=== PATIENT | female | born 1960 | race Caucasian/White ===

== ENCOUNTER 2023-03-06 08:21 | Emergency (ER) | payer OTHER, SELFPAY ==
[2023-03-06 08:23] VITALS: BP 180/107
[2023-03-06] MEDS: TYLENOL 1000 MG PO (09:53)
[2023-03-06] MEDS: MOTRIN 600 MG PO (09:55)
--- NOTE | 2023-03-06 10:10 | ED.GENMED ---
History of Present Illness
<Chucky Arango Jr., PA-C - Last Filed: 03/06/23 14:01>
General
Chief Complaint: Fall
Source: patient
Exam Limitations: none
Time Seen by Provider: 03/06/23 09:04
Nursing documentation reviewed up to this point in time: agreed with
Travel History
Have you had any contact with someone who has COVID-19?: No
Do you have any symptoms of coronavirus? Fever > 100 degrees, chills, cough, shortness of breath, sore throat, loss of taste or smell, muscle aches, or headache?: No
History of Present Illness
History of Present Illness:
62-year-old female presenting to the emergency department today after a slip and fall yesterday when walking in the work twisted her left ankle has been able to walk but has been limping. Denies numbness weakness denies any head trauma not on blood
thinners. Does have some mild pain to her knees bilaterally
Past History
<Chucky Arango Jr., PA-C - Last Filed: 03/06/23 14:01>
Past History
ED Past Medical History: None
ED Past Surgical History: Orthopedic
Social History
Tobacco: Non-smoker
Alcohol: Occasional
Drug: None
Living: with family
Employment: Employed
Review of Systems
<Chucky Arango Jr., PA-C - Last Filed: 03/06/23 14:01>
Review of Systems
Allergies reviewed?: Yes
All Other Systems: ROS reviewed and negative except as documented in HPI and ROS
Phy Exam
<Chucky Arango Jr., PA-C - Last Filed: 03/06/23 14:01>
Physical Exam
Physical Exam:
GENERAL: Alert , in no apparent distress
EYE: pupils equal and reactive
NECK: Supple, no significant adenopathy.
ENT: o/p clr, mmm.
CARDIAC: Regular rate and rhythm .
LUNGS: Clear breath sounds bilaterally, no acute respiratory distress, no wheezes/rales/rhonchi
ABDOMEN: Soft, without focal tenderness, no r/g, no cvat
NEUROLOGICAL: Alert and oriented, no focal neuro deficits
SKIN: Warm and dry, skin intact.
MUSCULOSKELETAL: Very mild swelling to the left ankle tenderness palpation mainly to the left lateral malleolus, well perfused.
PSYCH: Normal and appropriate interaction.
Course
<Chucky Arango Jr., EDYTA-Chucky - Last Filed: 03/06/23 14:01>
Orders/Labs/Results
Orders:
Orders
03/06/23 09:34
Acetaminophen [Tylenol] 1,000 mg PO NOW STA
Ibuprofen [Motrin] 600 mg PO NOW STA
Ankle, left 3 view CR [CR Ankle - Left Min 3 Views ] Urgent
Comment:
Reason For Exam: ankle pain after fall
CR Foot - Left Min 3 Views Urgent
Comment:
Reason For Exam: foot pain after fall
CR Knee - Left 4 Or More View* Urgent
Comment:
Reason For Exam: fall knee pain
CR Knee- Right 4 Or More View* Urgent
Comment:
Reason For Exam: fall knee pain
03/06/23 10:56
Ankle, Right 3 view CR [CR Ankle - Right Min 3 Views *] Urgent
Comment:
Reason For Exam: ankle pain
CR Foot - Right Min 3 Views Urgent
Comment:
Reason For Exam: foot pain after fall;
Vital Signs
Initial and Last Documented VS:
Initial Vital Signs
Temp Pulse Resp BP Pulse Ox
97.8 F 80 18 180/107 96
03/06/23 08:23 03/06/23 08:23 03/06/23 08:23 03/06/23 08:23 03/06/23 08:23
Last Documented Vital Signs
Temp Pulse Resp BP Pulse Ox
97.8 F 80 18 180/107 96
03/06/23 08:23 03/06/23 08:23 03/06/23 08:23 03/06/23 08:23 03/06/23 08:23
<Reyna Alonzo PA-C - Last Filed: 03/06/23 13:59>
Orders/Labs/Results
Orders:
Orders
03/06/23 09:34
Acetaminophen [Tylenol] 1,000 mg PO NOW STA
Ibuprofen [Motrin] 600 mg PO NOW STA
Ankle, left 3 view CR [CR Ankle - Left Min 3 Views ] Urgent
Comment:
Reason For Exam: ankle pain after fall
CR Foot - Left Min 3 Views Urgent
Comment:
Reason For Exam: foot pain after fall
CR Knee - Left 4 Or More View* Urgent
Comment:
Reason For Exam: fall knee pain
CR Knee- Right 4 Or More View* Urgent
Comment:
Reason For Exam: fall knee pain
03/06/23 10:56
Ankle, Right 3 view CR [CR Ankle - Right Min 3 Views *] Urgent
Comment:
Reason For Exam: ankle pain
CR Foot - Right Min 3 Views Urgent
Comment:
Reason For Exam: foot pain after fall;
Vital Signs
Initial and Last Documented VS:
Initial Vital Signs
Temp Pulse Resp BP Pulse Ox
97.8 F 80 18 180/107 96
03/06/23 08:23 03/06/23 08:23 03/06/23 08:23 03/06/23 08:23 03/06/23 08:23
Last Documented Vital Signs
Temp Pulse Resp BP Pulse Ox
97.8 F 80 18 180/107 96
03/06/23 08:23 03/06/23 08:23 03/06/23 08:23 03/06/23 08:23 03/06/23 08:23
<Reyna Alonzo PA-C - Last Filed: 03/06/23 13:59>
Splinting/Sling Placement
Left Leg:
Procedure completed by: Reyna Alonzo PA-C
Pre-splint extermity exam: neurovascular intact
Type of splint: other (bulky casey splint)
Splint material: fiberglass
Splint checked by provider?: Yes
Normal distal neurovascular exam?: Yes
<Chucky Arango Jr., PA-C - Last Filed: 03/06/23 14:01>
MDM/Problems Addressed
MDM/Problems Addressed:
62-year-old female presenting to the emergency department today after a fall yesterday mainly hurting her left ankle now having some achiness to her bilateral knees. Has been able to walk but has been limping. Here she does have tenderness mainly
to the left lateral malleolus. Otherwise able to range fully at the knees ankle does no significant tenderness about the right foot or ankle. X-ray showing fracture to distal left fibula otherwise no fracture to the knees bilaterally of the right
foot or ankle. Patient was splinted given crutches advised for orthopedic follow-up. Return precautions given.
<Chucky Arango Jr., PA-C - Last Filed: 03/06/23 14:01>
*Critical Care Note
Total Time (30-74mins, 75-104mins- exclusive of procedures): Not Applicable
ED Attending Note
<Chucky Arango Jr., PA-C - Last Filed: 03/06/23 14:01>
-
Portions of this chart may have been created with voice recognition software.� Occasional wrong word or��sound alike� substitutions may have occurred due to the inherent limitations of voice recognition software.
Discharge Plan
Departure
Patient Disposition: Home (Routine Discharge)
Date of Disposition: 03/06/23
Time of Disposition: 14:00
Patient with high blood pressure during this ER visit?: No
Condition: Good
Covid-19: Not Applicable
Discharge Problem:
Fracture of distal end of fibula
Instructions: Ankle Fracture (DC)
Prescriptions:
No Action
Acyclovir 800 MG Tablet
800 mg PO DAILY
albuterol sulfate 2.5 MG/3 ML solution for nebulization
2.5 mg inhalation R QID Qty: 30 0RF
prednisone 20 MG tablet
40 mg PO DAILY Qty: 8 0RF
azithromycin 250 MG tablet
250 mg PO DIRECTED Qty: 6 0RF
Rx Instructions:
Take 2 tablets by mouth on day 1, then 1 tablet by mouth daily for 4 days.
Referrals:
Marlys Anthony MD [Family Provider] -
Stand Alone Forms: Return to Work
Activity Restrictions/Additional Instructions:
You came to the emergency department today with concerns of a trip and fall. You are found have a distal fibular fracture of the left foot. Please limit weightbearing until orthopedic follow-up within 1 week for reassessment. Return to the
emergency department for any worsening, new or concerning symptoms. In the meantime please elevate and ice to help with symptoms.
== END 2023-03-06 14:39 | disposition home or self-care (01) ==
LOC: EMR 08:21
PROVIDERS: EMERGENCY PHYSICIAN Emergency Medicine; FAMILY PHYSICIAN Family Medicine
DX: S82.832A Other fracture of upper and lower end of left fibula, initial encounter for closed fracture (principal); M25.562 Pain in left knee; M25.561 Pain in right knee; W01.0XXA Fall on same level from slipping, tripping and stumbling without subsequent striking against object, initial encounter; Y93.01 Activity, walking, marching and hiking; Y92.89 Other specified places as the place of occurrence of the external cause; Y99.0 Civilian activity done for income or pay
CPT/HCPCS: 99284; 73564; 73610; 73630

== ENCOUNTER → 2023-04-13 15:32 | Outpatient (REF) | payer OTHER, SELFPAY | LOC: WDC 15:32 | PROVIDERS: ATTENDING PHYSICIAN Obstetrics & Gynecology; FAMILY PHYSICIAN Family Medicine | DX: Z12.31 Encounter for screening mammogram for malignant neoplasm of breast (principal) | CPT/HCPCS: 77063; 77067 ==

== ENCOUNTER → 2023-07-26 15:18 | Outpatient (REF) | payer OTHER, SELFPAY | LOC: MRI 3T 15:18 | PROVIDERS: ATTENDING PHYSICIAN Physical Medicine & Rehabilitation Sports Medicine; FAMILY PHYSICIAN Family Medicine | DX: M25.561 Pain in right knee (principal); M25.361 Other instability, right knee; M17.9 Osteoarthritis of knee, unspecified | CPT/HCPCS: 73721 ==

== ENCOUNTER → 2023-12-17 15:01 | Outpatient (REF) | payer OTHER, SELFPAY | LOC: MRI 3T 15:01 | PROVIDERS: ATTENDING PHYSICIAN Orthopaedic Surgery; FAMILY PHYSICIAN Family Medicine | DX: S82.62XD Displaced fracture of lateral malleolus of left fibula, subsequent encounter for closed fracture with routine healing (principal); M76.822 Posterior tibial tendinitis, left leg | CPT/HCPCS: 73721 ==

== ENCOUNTER → 2024-07-21 15:38 | Outpatient (REF) | payer OTHER, SELFPAY | LOC: WDC 15:38 | PROVIDERS: ATTENDING PHYSICIAN Student in an Organized Health Care Education/Training Program; FAMILY PHYSICIAN Family Medicine | DX: Z12.31 Encounter for screening mammogram for malignant neoplasm of breast (principal) | CPT/HCPCS: 77063; 77067 ==